=== PATIENT | female | born 1970 | race African-American/Black ===

== ENCOUNTER 2016-09-25 12:20 | Emergency (ER) | payer SELFPAY ==
[~2016-09-25] VITALS: Ht 172.7 cm; Wt 75.0 kg
--- NOTE | 2016-09-25 12:48 | PD ---
HPI Chief Complaint: Medical Clearance Time Seen by Provider: 12:44 Travel History International Travel<30 days: No Contact w/Intl Traveler<30days: No Traveled to known affect area: No History of Present Illness HPI Patient's 45 year old female brought into emergency for psychiatric evaluation under Dykes act after being witnessed [place] [address] making statements that she was done and wanting to . Patient is not forthcoming with events occurring this morning, she does state that when she walks on the road cars try to "challenge her" by speeding up. According to the Dykes act report patient states that she is tired of everyone harassing her. She denies any psychiatric history, she denies any physical complaints. Patient only requests coffee this time. [facility] Past Medical History Medical History: Denies Significant Hx Past Surgical History Surgical History: No Previous Surgery Social History Alcohol Use: No Tobacco Use: No Substance Use: No Allergies-Medications (Allergen,Severity, Reaction): Coded Allergies: No Known Allergies (Unverified , 09/25/16) Review of Systems ROS Limitations: Uncooperative Except as stated in HPI: all other systems reviewed are Neg Physical Exam Narrative GENERAL: Well developed, well-nourished, alert female. Well kept, in no acute distress. SKIN: Focused skin assessment warm/dry. HEAD: Atraumatic. Normocephalic. EYES: Pupils equal and round. No scleral icterus. No injection or drainage. ENT: No nasal bleeding or discharge. Mucous membranes pink and moist. NECK: Trachea midline. No JVD. CARDIOVASCULAR: Regular rate and rhythm. No murmur appreciated. RESPIRATORY: No accessory muscle use. Clear to auscultation. Breath sounds equal bilaterally. GASTROINTESTINAL: Abdomen soft, non-tender, nondistended. Hepatic and splenic margins not palpable. MUSCULOSKELETAL: No obvious deformities. No clubbing. No cyanosis. No edema. NEUROLOGICAL: Awake and alert. No obvious cranial nerve deficits. Motor grossly within normal limits. Normal speech. PSYCHIATRIC: Flat mood and affect; insight and judgment normal. Data Data Last Documented VS Vital Signs Date Time Temp Pulse Resp B/P Pulse Ox O2 Delivery O2 Flow Rate FiO2 09/25/16 12:55 98.3 81 20 141/91 100 Room Air Orders Complete Blood Count With Diff (09/25/16 12:37) Comprehensive Metabolic Panel (09/25/16 12:37) Urinalysis - C+S If Indicated (09/25/16 12:37) Iv Access Insert/Monitor (09/25/16 12:37) Psych Screen (09/25/16 12:37) Drug Screen, Random Urine (09/25/16 12:37) Alcohol (Ethanol) (09/25/16 12:37) Salicylates (Aspirin) (09/25/16 12:37) Tylenol (Acetaminophen) (09/25/16 12:37) Labs Laboratory Tests Test 09/25/16 12:45 White Blood Count 7.3 TH/MM3 Red Blood Count 3.64 MIL/MM3 Hemoglobin 7.7 GM/DL Hematocrit 25.3 % Mean Corpuscular Volume 69.4 FL Mean Corpuscular Hemoglobin 21.2 PG Mean Corpuscular Hemoglobin 30.5 % Concent Red Cell Distribution Width 18.5 % Platelet Count 357 TH/MM3 Mean Platelet Volume 7.7 FL Neutrophils (%) (Auto) 80.6 % Lymphocytes (%) (Auto) 11.1 % Monocytes (%) (Auto) 7.2 % Eosinophils (%) (Auto) 0.6 % Basophils (%) (Auto) 0.5 % Neutrophils # (Auto) 5.9 TH/MM3 Lymphocytes # (Auto) 0.8 TH/MM3 Monocytes # (Auto) 0.5 TH/MM3 Eosinophils # (Auto) 0.0 TH/MM3 Basophils # (Auto) 0.0 TH/MM3 CBC Comment DIFF FINAL Differential Comment Urine Color YELLOW Urine Turbidity CLEAR Urine pH 5.5 Urine Specific Adger 1.017 Urine Protein 30 mg/dL Urine Glucose (UA) NEG mg/dL Urine Ketones NEG mg/dL Urine Occult Blood NEG Urine Nitrite NEG Urine Bilirubin NEG Urine Urobilinogen LESS THAN 2.0 MG/DL Urine Leukocyte Esterase NEG Urine RBC LESS THAN 1 /hpf Urine WBC 1 /hpf Urine Squamous Epithelial 2 /hpf Cells Microscopic Urinalysis Comment CULT NOT INDICATED Sodium Level 138 MEQ/L Potassium Level 4.0 MEQ/L Chloride Level 106 MEQ/L Carbon Dioxide Level 25.8 MEQ/L Anion Gap 6 MEQ/L Blood Urea Nitrogen 18 MG/DL Creatinine 0.76 MG/DL Estimat Glomerular Filtration 99 ML/MIN Rate Random Glucose 84 MG/DL Calcium Level 9.4 MG/DL Total Bilirubin 0.3 MG/DL Aspartate Amino Transf 19 U/L (AST/SGOT) Alanine Aminotransferase 18 U/L (ALT/SGPT) Alkaline Phosphatase 52 U/L Total Protein 7.5 GM/DL Albumin 3.7 GM/DL Salicylates Level LESS THAN 1.7 MG/DL Urine Opiates Screen NEG Acetaminophen Level LESS THAN 2.0 MCG/ML Urine Barbiturates Screen NEG Urine Amphetamines Screen NEG Urine Benzodiazepines Screen NEG Urine Cocaine Screen NEG Urine Cannabinoids Screen NEG Ethyl Alcohol Level LESS THAN 3 MG/DL MDM Medical Decision Making Medical Screen Exam Complete: Yes Emergency Medical Condition: Yes Interpretation(s) Vital Signs Date Time Temp Pulse Resp B/P Pulse Ox O2 Delivery O2 Flow Rate FiO2 09/25/16 12:55 98.3 81 20 141/91 100 Room Air Laboratory Tests Test 09/25/16 12:45 White Blood Count 7.3 TH/MM3 Red Blood Count 3.64 MIL/MM3 Hemoglobin 7.7 GM/DL Hematocrit 25.3 % Mean Corpuscular Volume 69.4 FL Mean Corpuscular Hemoglobin 21.2 PG Mean Corpuscular Hemoglobin 30.5 % Concent Red Cell Distribution Width 18.5 % Platelet Count 357 TH/MM3 Mean Platelet Volume 7.7 FL Neutrophils (%) (Auto) 80.6 % Lymphocytes (%) (Auto) 11.1 % Monocytes (%) (Auto) 7.2 % Eosinophils (%) (Auto) 0.6 % Basophils (%) (Auto) 0.5 % Neutrophils # (Auto) 5.9 TH/MM3 Lymphocytes # (Auto) 0.8 TH/MM3 Monocytes # (Auto) 0.5 TH/MM3 Eosinophils # (Auto) 0.0 TH/MM3 Basophils # (Auto) 0.0 TH/MM3 CBC Comment DIFF FINAL Differential Comment Urine Color YELLOW Urine Turbidity CLEAR Urine pH 5.5 Urine Specific Adger 1.017 Urine Protein 30 mg/dL Urine Glucose (UA) NEG mg/dL Urine Ketones NEG mg/dL Urine Occult Blood NEG Urine Nitrite NEG Urine Bilirubin NEG Urine Urobilinogen LESS THAN 2.0 MG/DL Urine Leukocyte Esterase NEG Urine RBC LESS THAN 1 /hpf Urine WBC 1 /hpf Urine Squamous Epithelial 2 /hpf Cells Microscopic Urinalysis Comment CULT NOT INDICATED Sodium Level 138 MEQ/L Potassium Level 4.0 MEQ/L Chloride Level 106 MEQ/L Carbon Dioxide Level 25.8 MEQ/L Anion Gap 6 MEQ/L Blood Urea Nitrogen 18 MG/DL Creatinine 0.76 MG/DL Estimat Glomerular Filtration 99 ML/MIN Rate Random Glucose 84 MG/DL Calcium Level 9.4 MG/DL Total Bilirubin 0.3 MG/DL Aspartate Amino Transf 19 U/L (AST/SGOT) Alanine Aminotransferase 18 U/L (ALT/SGPT) Alkaline Phosphatase 52 U/L Total Protein 7.5 GM/DL Albumin 3.7 GM/DL Salicylates Level LESS THAN 1.7 MG/DL Urine Opiates Screen NEG Acetaminophen Level LESS THAN 2.0 MCG/ML Urine Barbiturates Screen NEG Urine Amphetamines Screen NEG Urine Benzodiazepines Screen NEG Urine Cocaine Screen NEG Urine Cannabinoids Screen NEG Ethyl Alcohol Level LESS THAN 3 MG/DL Differential Diagnosis Mood disorder versus substance abuse versus suicidal ideations versus delirium versus other Narrative Course Patient is a 45-year-old female presenting to the emergency Department under Dykes act due to suicidal ideations and abnormal behavior. She is not forthcoming with her medical history or events occurring this morning that led up to the Dykes act. She denies any physical complaints at this time. CBC with hemoglobin 7.7. Urine drug screen is negative, salicylate level, alcohol level, acetaminophen are normal. Chemistries unremarkable. Patient's vital signs are stable. She is medically cleared at this time for psychiatric evaluation. The process of medical clearance was discussed with patient. Diagnosis Primary Impression: Medical clearance for psychiatric admission Additional Impression: Anemia Qualified Code: D64.9 - Anemia, unspecified type Scripts Multi-Vit/Iron-Folic [id number] C (Ferralet)90-1-0.012-120 mg Tab1 Tab PO DAILY #30 Ref 1 Prov:Cheli Goyal 09/25/16 Condition: Stable Cheli Goyal September 25, 2016 12:48
[2016-09-25 12:55] VITALS: BP 141/91; PULSE 81; RESP 20; TEMP 98.3; O2SAT 100
[2016-09-25 14:08] LABS: AUTOMATED NEUTROPHIL # 5.9 TH/MM3 (1.8-7.7); BASOPHIL % 0.5 % (0.0-2.0); EOSINOPHIL % 0.6 % (0.0-4.0); HEMATOCRIT 25.3 % (35.0-46.0); HEMO FLAGS DIFF FINAL; LYMPH % 11.1 % (9.0-44.0); LYMPHOCYTE # 0.8 TH/MM3 (1.0-4.8); MEAN CELL VOLUME 69.4 FL (80.0-100.0); MEAN CORPUSCULAR HEMOGLOBIN 21.2 PG (27.0-34.0); MEAN CORPUSCULAR HGB CONC 30.5 % (32.0-36.0); MONO % 7.2 % (0.0-8.0); NEUT % 80.6 % (16.0-70.0); PLATELET COUNT 357 TH/MM3 (150-450); RED BLOOD COUNT 3.64 MIL/MM3 (4.00-5.30); RED CELL DISTRIBUTION WIDTH 18.5 % (11.6-17.2); WHITE BLOOD COUNT 7.3 TH/MM3 (4.0-11.0)
[2016-09-25 14:14] LABS: BLOOD, URINE NEG (NEG); COMMENT (UR) CULT NOT INDICATED; CULTURE IF INDICATED CULT NOT INDICATED; GLUCOSE,URINE NEG (NEG); KETONE, URINE NEG (NEG); NITRITE,URINE NEG (NEG); PH, URINE 5.5 (5.0-8.5); SQUAMOUS EPITHELIAL CELL URINE 2 /hpf (0-5); URINE COLOR YELLOW (YELLW/STRAW)
[2016-09-25 14:18] LABS: AMPHETAMINE, URINE NEG (NEG); BARBITURATES, URINE NEG (NEG); COCAINE, URINE NEG (NEG)
[2016-09-25 14:36] LABS: ACETAMINOPHEN LESS THAN 2.0 MCG/ML (10.0-30.0); ALT (GPT) 18 U/L (10-53); ANION GAP 6 MEQ/L (5-15); AST (GOT) 19 U/L (15-37); BICARBONATE 25.8 MEQ/L (21.0-32.0); BLOOD UREA NITROGEN 18 MG/DL (7-18); CHLORIDE 106 MEQ/L (98-107); GLOMERULAR FILTRATION RATE 99 ML/MIN (>89); SODIUM (NA) 138 MEQ/L (136-145)
[2016-09-25 14:38] LABS: ALKALINE PHOSPHATASE 52 U/L (45-117); TOTAL BILIRUBIN ADULT 0.3 MG/DL (0.2-1.0)
[2016-09-25] MEDS ORDERED: FERRTAB2 PO (15:03)
[2016-09-25 18:25] VITALS: BP 163/90; PULSE 66; RESP 18; O2SAT 99
[2016-09-25 23:35] VITALS: BP 160/82; PULSE 53; RESP 18; O2SAT 100
== END 2016-09-26 03:39 ==
LOC: NEPD 12:20 → NEPJ 09-26 03:39
DX: D64.9 Anemia, unspecified (principal)
CPT/HCPCS: 80053; 80307; 81001; 84703; 85025; 99285